=== PATIENT | female | born 1970 | race Caucasian/White ===

== ENCOUNTER 2018-12-25 22:33 | Emergency (ER) | payer SELFPAY ==
[~2018-12-25] VITALS: Ht 165.1 cm; Wt 71.8 kg
[2018-12-25 23:05] VITALS: Ht 165.1 cm; Wt 71.8 kg
--- NOTE | 2018-12-26 00:18 | ERD ---
ER Documentation Chief Complaint Chief Complaint UPSET STOMACH HPI The patient is a 48-year-old female, presenting to the ER because of upset stomach, heartburn, nausea ever since he started amoxicillin, clarithromycin and omeprazole 2 days ago for her Helicobacter pylori gastritis, her symptoms are worse tonight, therefore she came to the ER. She denies fever, chills, neck pain, chest pain, dyspnea, diarrhea, dysuria. She does not smoke nor drink Past medical history: Gastritis Past surgical history: ROS All systems reviewed and are negative except as per history of present illness. Medications Home Meds Active Scripts Ondansetron (Ondansetron Odt) 4 Mg Tab.rapdis, 4 MG PO Q6H PRN for NAUSEA AND/OR VOMITING, #10 TAB Prov:JOSEPH LOCKETT MD 12/26/18 Physical Exam Vitals Vital Signs Date Temp Pulse Resp B/P (MAP) Pulse Ox O2 O2 Flow FiO2 Time Delivery Rate 12/25/18 98.8 92 21 141/63 100 23:05 (89) Physical Exam Const: No acute distress. Head: Atraumatic. Eyes: Normal Conjunctiva. ENT: Normal External Ears, Nose and Mouth. Neck: Full range of motion. No meningismus. Resp: Clear to auscultation bilaterally. Cardio: Regular rate and rhythm. Abd: Soft, non distended, normal bowel sounds, non tender. Skin: No petechiae or rashes. Back: No midline or flank tenderness. Ext: No cyanosis, or edema. Neur: Awake and alert. No focal deficit Psych: Normal Mood and Affect. Result Diagram: 12/26/18 0035 12/26/18 0035 Results 24 hrs Laboratory Tests Test 12/26/18 00:35 12/26/18 00:41 12/26/18 00:42 White Blood Count 9.7 10^3/ul Red Blood Count 4.60 10^6/ul Hemoglobin 12.8 g/dl Hematocrit 39.8 % Mean Corpuscular Volume 86.5 fl Mean Corpuscular Hemoglobin 27.8 pg Mean Corpuscular Hemoglobin Concent 32.2 g/dl Red Cell Distribution Width 13.1 % Platelet Count 359 10^3/UL Mean Platelet Volume 10.0 fl Immature Granulocytes % 0.300 % Neutrophils % 65.3 % Lymphocytes % 26.4 % Monocytes % 7.0 % Eosinophils % 0.6 % Basophils % 0.4 % Nucleated Red Blood Cells % 0.0 /100WBC Immature Granulocytes # 0.030 10^3/ul Neutrophils # 6.3 10^3/ul Lymphocytes # 2.6 10^3/ul Monocytes # 0.7 10^3/ul Eosinophils # 0.1 10^3/ul Basophils # 0.0 10^3/ul Nucleated Red Blood Cells # 0.0 10^3/ul Sodium Level 142 mmol/L Potassium Level 3.9 mmol/L Chloride Level 103 mmol/L Carbon Dioxide Level 28 mmol/L Anion Gap 11 Blood Urea Nitrogen 8 mg/dl Creatinine 0.78 mg/dl Est Glomerular Filtrat Rate mL/min > 60 mL/min Glucose Level 120 mg/dl Calcium Level 9.9 mg/dl Total Bilirubin 0.1 mg/dl Direct Bilirubin 0.00 mg/dl Indirect Bilirubin 0.1 mg/dl Aspartate Amino Transf (AST/SGOT) 23 IU/L Alanine Aminotransferase (ALT/SGPT) 56 IU/L Alkaline Phosphatase 128 IU/L Total Protein 8.5 g/dl Albumin 4.5 g/dl Globulin 4.00 g/dl Albumin/Globulin Ratio 1.12 Lipase 134 U/L Bedside Urine pH (LAB) 7.0 Bedside Urine Protein (LAB) Negative Bedside Urine Glucose (UA) Negative Bedside Urine Ketones (LAB) Negative Bedside Urine Blood Trace-intact Bedside Urine Nitrite (LAB) Negative Bedside Urine Leukocyte Esterase (L Trace POC Beta HCG, Qualitative NEGATIVE Current Medications Medications Dose Sig/Nabeel Start Time Status Last (Trade) Ordered Route PRN Stop Time Admin Dose Reason Admin Sodium 1,000 ml @ Q1H STAT 12/26/18 DC 12/26/18 Chloride 1,000 mls/hr IV 00:40 12/26/18 00:59 01:39 Ondansetron 4 mg ONCE STAT 12/26/18 DC 12/26/18 HCl (Zofran IV 00:40 12/26/18 00:59 Inj) 00:41 Procedures/MDM MEDICAL MAKING DECISION: The patient is a 48-year-old female, presenting with acute GI intolerance due to medication for her Helicobacter pylori gastritis, was treated with 1 L normal saline for clinical dehydration, Zofran IV for nausea with good response, is stable for outpatient follow-up The differential diagnoses considered include but are not limited to cholelithiasis, cholecystitis, choledocholithiasis, cholangitis, pancreatitis, hepatitis, gastritis, peptic ulcer disease, gastric ulcer, appendicitis, cystitis, diverticulitis, partial small bowel obstruction. Departure Diagnosis: Primary Impression: Adverse drug interaction Condition: Good Comments He was discharged with Zofran and advised to stop the medication and follow-up w ben a payroll bookkeeper in about 2-3 days I discussed the findings with the patient. I advised the patient to follow-up with the primary physician in about 2-3 days, sooner if needed and return if any concern. Disclaimer: Inadvertent spelling and grammatical errors are likely due to EHR/dictation software use and do not reflect on the overall quality of patient care. Also, please note that the electronic time recorded on this note does not necessarily reflect the actual time of the patient encounter. JOSEPH LOCKETT MD Dec 26, 2018 00:18
[2018-12-26] MEDS ORDERED: SOD CHLORIDE 0.9% 1,000 ML IV STA (00:40)
[2018-12-26] MEDS ORDERED: ONDANSETRON 4 MG INJ IV STA (00:40)
[2018-12-26] MEDS ORDERED: ONDA4TAB14 PO (01:55)
[2018-12-26 02:48] VITALS: BP 100/69; PULSE 68; RESP 14
== END 2018-12-26 02:51 | disposition home or self-care (01) ==
LOC: E/R 22:33
DX: R11.0 Nausea (principal)
CPT/HCPCS: 80053; 81003; 81025; 83690; 85025; J2405; J7030; 36415; 96374